=== PATIENT | male | born 1940 | race American Indian/Alaskan Native ===

== ENCOUNTER 2018-01-22 09:17 | Day surgery (SDC) | payer MEDICARE ==
[~2018-01-22 09:17] MED LIST: ANCEF/STERILE WATER 2 GM/20 ML 2 GM/20 ML SYRINGE IV NR; NACL 0.9% 1000 ML 1,000 ML IV SCH
[2018-01-22 10:15] LABS: Basophils # (Auto) 0.1 K/mm3 (0.0-0.1); Basophils % (Auto) 1.4 % (0.0-1.8); Eosinophils # (Auto) 0.2 K/mm3 (0.0-0.4); Eosinophils % (Auto) 3.7 % (0.0-4.3); Hematocrit 43.3 % (35.5-45.6); Hemoglobin 14.2 gm/dl (11.8-15.2); Lymphocytes # (Auto) 1.4 K/mm3 (1.2-5.4); Lymphocytes % (Auto) 26.6 % (13.4-35.0); Mean Corpuscular HGB Conc 33 % (32-34); Mean Corpuscular Hemoglobin 32 pg (28-32); Mean Corpuscular Volume 96 fl (84-94); Monocytes # (Auto) 0.7 K/mm3 (0.0-0.8); Monocytes % (Auto) 13.4 % (0.0-7.3)
[2018-01-22 10:17] LABS: Platelet Count 77 K/mm3 (140-440); Red Cell Distribution Width 21.2 % (13.2-15.2)
[2018-01-22 10:28] LABS: Calcium 9.4 mg/dL (8.4-10.2)
[2018-01-22] MEDS ORDERED: VERSED ONE (12:01)
[2018-01-22] MEDS ORDERED: HEPARIN/NS 5000 UNIT/500ML(CATH LAB) 1,000 ML IR ONE (12:01)
[2018-01-22] MEDS ORDERED: HEPARIN 10,000 UNITS/10 ML ONE (12:01)
[2018-01-22] MEDS ORDERED: XYLOCAINE 2% INFILTRATI ONE (12:02)
[2018-01-22] MEDS ORDERED: NACL 0.9% 500 ML 500 ML ONE (12:02)
[2018-01-22] MEDS ORDERED: ANCEF/STERILE WATER 2 GM/20 ML 2 GM/20 ML SYRINGE IV ONE (12:02)
[2018-01-22] MEDS ORDERED: SUBLIMAZE ONE (12:02)
[2018-01-22] MEDS ORDERED: NORMODYNE IV ONE (13:00)
--- NOTE | 2018-01-22 13:22 | Short Stay Summary ---
Short Stay Documentation Date of service: 01/22/18 - History H&P: obtained from office - Allergies and Medications Current Medications: Allergies codeine Allergy (Verified 01/22/18 09:38) Hives Sulfa (Sulfonamide Antibiotics) Allergy (Verified 01/22/18 09:38) Itching Home Medications Medication Instructions Recorded Confirmed Last Taken Type AtorvaSTATin [Lipitor] 20 mg PO QHS 01/22/18 01/22/18 01/21/18 History 20mg Carvedilol [Coreg] 25 mg PO BID 01/22/18 01/22/18 01/22/18 History 25mg Dialyvite 800-Zinc 50 mg Tab 1 tab PO DAILY 01/22/18 01/22/18 01/21/18 History 1 Finasteride [Proscar] 5 mg PO DAILY 01/22/18 01/22/18 01/21/18 History 5mg Furosemide [Lasix] 80 mg PO BID 01/22/18 01/22/18 01/21/18 History 80mg Gabapentin [Neurontin] 100 mg PO QHS 01/22/18 01/22/18 01/21/18 History 100mg NIFEdipine [Nifedipine ER] 60 mg PO DAILY 01/22/18 01/22/18 01/22/18 History 60mg Omeprazole 40 mg PO BID 01/22/18 01/22/18 01/21/18 History 40mg Active Medications Cefazolin Sodium (Ancef/Sterile Water 2 Gm/20 Ml) 2 gm in 20 mls @ 80 mls/hr IV PREOP NR; Protocol Stop: 01/22/18 23:59 Last Admin: 01/22/18 12:33 Dose: 20 mls Sodium Chloride (Nacl 0.9% 1000 Ml) 1,000 mls @ 42 mls/hr IV DIRECT CHELSEA - Brief post op/procedure progress note Date of procedure: 01/22/18 Pre-op diagnosis: failing avf left upper arm Post-op diagnosis: same Procedure: fistulagram and angioplasty of the left arm avf using two separate access sites Anesthesia: local (sedation) Findings: stenosis of the arterial side of the fistula Surgeon: JOANNE ATKINSON Estimated blood loss: none Condition: stable - Hospital course Hospital course: benign - Disposition Condition at discharge: Good Disposition: DC-01 TO HOME OR SELFCARE Short Stay Discharge Plan Activity: no restrictions Diet: advance as tolerated Wound: per your surgeon's advice
--- NOTE | 2018-01-22 13:29 | Operative Report ---
Operative Report Operative Report: Date of procedure: 01/22/2018 Pre-procedure diagnosis: Failing arteriovenous fistula, left upper extremity Post-procedure diagnosis: [Same] Procedure name(s): 1. Access left upper extremity arteriovenous fistula for intervention 2. Access left upper extremity arteriovenous fistula (second site) for intervention Surgeon: Kvng Aguilera MD Anesthesia: [Local with sedation]; sedation start at 1232 sedation and at 1259. Total sedation time 27 minutes. EBL: Minimal Procedure indication: Patient is a 77-year-old man with a failing left upper extremity arteriovenous fistula. Findings: Severe stenosis of the arterial side of the AV fistula proximal to the cannulation sites. Excellent technical result was achieved. No immediate complication noted. Procedure description: Patient was placed on the table in supine position and given appropriate anesthesia. The area over the left arm was prepped with ChloraPrep solution and draped in the usual sterile fashion. 2% lidocaine was used for local anesthesia. Micropuncture technique was used to enter the arterial venous fistula near the cannulation sites directed toward the venous outflow. A 6 [place]ian sheath was placed over a guidewire. Angiography revealed some mild narrowing of the venous side of the fistula up to the junction with the axillary vein. Stenosis was estimated at about 40%. Venous flow from the axillary vein all into the right atrium was widely patent. Reflux views were done into the arterial side of the fistula. This revealed a severe stenosis just proximal to the cannulation sites but distal to the arterial anastomosis. Estimated stenosis was close to 80%. There were no obvious issues with the visible portion of the brachial artery. The patient was given 2000 units of intravenous heparin. The decision was made to intervene. A second 6 Panamanian sheath was placed using micropuncture technique. The fissure was entered in the upper portion above the existing 6 Panamanian sheath. Sheath was directed up toward the dorsal side of the fistula. The fistula was cannulated using a Glidewire. A 6 mm balloon was then used to dilate the severely narrow portion of the fistula. Afterwards, the fistula was widely patent. There was a remarkable improvement in the thrill. Through the original sheath, an 8 mm balloon was then used to dilate the upper portion of the vein. Afterwards, there was no visible stenosis. There appeared to be an excellent technical result. There was now an excellent thrill throughout the arteriovenous fistula. Both sheaths were removed and the insertion sites were closed with 4-0 chromic. Pressure was helpful no further bleeding was identified. Sterile dressings were applied. The patient tolerated the procedure well and was taken from the cardiac laboratory aide in stable condition. There was an excellent thrill in the arteriovenous fistula. There was an easily palpable left radial pulse.
[2018-01-22 14:02] VITALS: BP 123/102
== END 2018-01-22 14:20 | disposition home or self-care (01) ==
LOC: CATHLABREC 09:17
PROVIDERS: ATTEND Surgery Vascular Surgery
DX: T82.858A Stenosis of other vascular prosthetic devices, implants and grafts, initial encounter (principal); I12.0 Hypertensive chronic kidney disease with stage 5 chronic kidney disease or end stage renal disease; N18.6 End stage renal disease; G62.9 Polyneuropathy, unspecified; E78.00 Pure hypercholesterolemia, unspecified; J44.9 Chronic obstructive pulmonary disease, unspecified; F32.9 Major depressive disorder, single episode, unspecified; M32.9 Systemic lupus erythematosus, unspecified; K21.9 Gastro-esophageal reflux disease without esophagitis; N40.0 Benign prostatic hyperplasia without lower urinary tract symptoms; M06.9 Rheumatoid arthritis, unspecified; Z88.0 Allergy status to penicillin; Z88.2 Allergy status to sulfonamides; Z99.2 Dependence on renal dialysis; Z79.899 Other long term (current) drug therapy; Z87.891 Personal history of nicotine dependence; Z98.890 Other specified postprocedural states
CPT/HCPCS: 36415; 36902; 80048; 85025; 99156; 99157; C1725; C1769; C1894; J0690; J1644; J2250; J3010; J7040; Q9967